=== PATIENT | male | born 1940 | race Caucasian/White ===

== ENCOUNTER 2017-09-10 20:32 | Emergency (ER) | payer MEDICARE, BC ==
--- NOTE | 2017-09-10 21:16 | EDM.PDOC ---
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 Tonight, a myles noted that Jairon seemed confused, inattentive, and suggested that he stop driving and come into the ED for an assessment. Jairon has a PMH of HBP and Type 2 DM, and did not check his BS today. He usually takes meds twice daily, but only took his am meds at noon. He denies dizziness, weakness, chest pain, SOB, headache, fatigue, polyuria or polydipsia. He denies ETOH or other substance use. - Related Data Allergies Allergy/AdvReac Type Severity Reaction Status Date / Time No Known Allergies Allergy Verified 09/10/17 21:21 Home Meds: Home Meds . [Unable to Verify Home Med List] 09/10/17 [History] Past Medical History Cardiovascular History: Reports: CAD, Hypertension, PTCA Endocrine/Metabolic History: Reports: Diabetes, Type II ED ROS GENERAL - Review of Systems Review Of Systems: See Below Constitutional: Reports: No Symptoms HEENT: Reports: No Symptoms Respiratory: Reports: No Symptoms Cardiovascular: Reports: No Symptoms Endocrine: Reports: No Symptoms GI/Abdominal: Reports: No Symptoms : Reports: No Symptoms Musculoskeletal: Reports: No Symptoms Skin: Reports: No Symptoms Neurological: Reports: Confusion Psychiatric: Reports: Confusion Hematologic/Lymphatic: Reports: No Symptoms Immunologic: Reports: No Symptoms ED EXAM, GENERAL - Physical Exam Exam: See Below Exam Limited By: No Limitations General Appearance: Alert, WD/WN, No Apparent Distress Eye Exam: Bilateral Eye: Normal Inspection, PERRL Ears: Normal External Exam Nose: Normal Inspection Throat/Mouth: Normal Inspection, Normal Oropharynx, Normal Voice Head: Normocephalic Neck: Normal Inspection, Supple, Non-Tender, Full Range of Motion Respiratory/Chest: Lungs Clear, Normal Breath Sounds Cardiovascular: Regular Rate, Rhythm, No Murmur GI/Abdominal: Normal Bowel Sounds, Soft, Non-Tender, No Organomegaly, No Mass (Male) Exam: No Hernia Rectal (Males) Exam: Deferred Back Exam: Normal Inspection Extremities: Normal Inspection Neurological: Alert, Oriented, CN II-XII Intact, Normal Cognition, Normal Gait, No Motor/Sensory Deficits Psychiatric: Normal Affect, Normal Mood Skin Exam: Warm, Dry Lymphatic: No Adenopathy Course - Vital Signs Text/Narrative:: Jairon remained stable at the [facility] ED. Screening labwork noted a nonFBS 275 mg%, and a HgbA1c 9.0%. The BUN/Cr ratio 25 was mildly elevated. 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 He has not been compliant with meds or diet. His son was called to pick him up, secure meds, and follow up with PCP tomorrow. Last Recorded V/S: Last Vital Signs Temp 35.5 C 09/10/17 21:22 Pulse 66 09/10/17 21:22 Resp 16 09/10/17 21:22 BP 149/82 H 09/10/17 21:22 Pulse Ox 95 09/10/17 21:22 - Orders/Labs/Meds Orders: Active Orders 24 hr Category Date Time Status EKG Documentation Completion [RC] ASDIRECTED Care 09/10/17 21:10 Active EKG 12 Lead [EK] Routine Ther 09/10/17 21:10 Ordered Labs: Laboratory Tests 09/10/17 09/10/17 09/10/17 Range/Units 21:18 21:18 21:22 WBC 9.0 (4.5-12.0) X10-3/uL RBC 4.55 (4.30-5.75) x10(6)uL Hgb 14.3 (11.5-15.5) g/dL Hct 41.2 (30.0-51.3) % MCV 90.6 (80-96) fL MCH 31.3 (27.7-33.6) pg MCHC 34.6 (32.2-35.4) g/dL RDW 12.5 (11.5-15.5) % Plt Count 238 (125-369) X10(3)uL MPV 8.3 (7.4-10.4) fL Neut % (Auto) 68.6 (46-82) % Lymph % (Auto) 19.6 (13-37) % [place] % (Auto) 10.0 (4-12) % Eos % (Auto) 1 (1.0-5.0) % Baso % (Auto) 1 (0-2) % Neut # (Auto) 6.1 (1.6-8.3) # Lymph # (Auto) 1.8 (0.6-5.0) # [place] # (Auto) 0.9 (0.0-1.3) # Eos # (Auto) 0.1 (0.0-0.8) # Baso # (Auto) 0.1 (0.0-0.2) # Sodium 132 L (135-145) mmol/L Potassium 3.6 (3.5-5.3) mmol/L Chloride 98 L (100-110) mmol/L Carbon Dioxide 24 (23-29) mmol/L BUN 35 H (8-23) mg/dL Creatinine 1.4 H (0.6-1.3) mg/dL Est Cr Clr Drug Dosing TNP Estimated GFR (MDRD) 49 L (>60) BUN/Creatinine Ratio 25.0 H (9-20) Glucose 275 H (80-116) mg/dL Hemoglobin A1c 9.0 H (4.0-6.0) % Calcium 9.2 (8.6-10.2) mg/dL Urine Color (YELLOW) Urine Appearance (CLEAR) Urine pH (5.0-6.5) Ur Specific [place] (1.010-1.025) Urine Protein (NEGATIVE) mg/dL Urine Glucose (UA) (NEGATIVE) mg/dL Urine Ketones (NEGATIVE) mg/dL Urine Occult Blood (NEGATIVE) Urine Nitrite (NEGATIVE) Urine Bilirubin (NEGATIVE) Urine Urobilinogen (NEGATIVE) mg/dL Ur Leukocyte Esterase (NEGATIVE) Urine RBC (0) Urine WBC (0) Ur Squamous Epith Cells (NS,R,O) Urine Bacteria (NS) 09/10/17 Range/Units 21:54 WBC (4.5-12.0) X10-3/uL RBC (4.30-5.75) x10(6)uL Hgb (11.5-15.5) g/dL Hct (30.0-51.3) % MCV (80-96) fL MCH (27.7-33.6) pg MCHC (32.2-35.4) g/dL RDW (11.5-15.5) % Plt Count (125-369) X10(3)uL MPV (7.4-10.4) fL Neut % (Auto) (46-82) % Lymph % (Auto) (13-37) % [place] % (Auto) (4-12) % Eos % (Auto) (1.0-5.0) % Baso % (Auto) (0-2) % Neut # (Auto) (1.6-8.3) # Lymph # (Auto) (0.6-5.0) # [place] # (Auto) (0.0-1.3) # Eos # (Auto) (0.0-0.8) # Baso # (Auto) (0.0-0.2) # Sodium (135-145) mmol/L Potassium (3.5-5.3) mmol/L Chloride (100-110) mmol/L Carbon Dioxide (23-29) mmol/L BUN (8-23) mg/dL Creatinine (0.6-1.3) mg/dL Est Cr Clr Drug Dosing Estimated GFR (MDRD) (>60) BUN/Creatinine Ratio (9-20) Glucose (80-116) mg/dL Hemoglobin A1c (4.0-6.0) % Calcium (8.6-10.2) mg/dL Urine Color Yellow (YELLOW) Urine Appearance Slightly cloudy (CLEAR) Urine pH 5.0 (5.0-6.5) Ur Specific [place] 1.010 (1.010-1.025) Urine Protein Negative (NEGATIVE) mg/dL Urine Glucose (UA) 250 H (NEGATIVE) mg/dL Urine Ketones Negative (NEGATIVE) mg/dL Urine Occult Blood Negative (NEGATIVE) Urine Nitrite Negative (NEGATIVE) Urine Bilirubin Negative (NEGATIVE) Urine Urobilinogen Normal (NEGATIVE) mg/dL Ur Leukocyte Esterase Moderate H (NEGATIVE) Urine RBC 0-5 (0) Urine WBC 20-30 H (0) Ur Squamous Epith Cells Occasional (NS,R,O) Urine Bacteria Few H (NS) Departure - Departure Time of Disposition: 22:37 Disposition: Home, Self-Care 01 Condition: Fair Clinical Impression: Type 2 diabetes mellitus Qualifiers: Diabetes mellitus complication status: with unspecified complications Diabetes mellitus nursing home insulin use: without nursing home use Qualified Code(s): E11.8 - Type 2 diabetes mellitus with unspecified complications - Discharge Information Referrals: Tab Karimi MD [Primary Care Provider] - Forms: ED Department Discharge - Problem List & Annotations (1) Type 2 diabetes mellitus SNOMED Code(s): 96654205 Code(s): E11.9 - TYPE 2 DIABETES MELLITUS WITHOUT COMPLICATIONS Status: Acute Current Visit: Yes Annotation/Comment:: Mr Mendosa will not drive until cleared by his PCP. He should resume meds and be checking BSs periodically as recommended. Qualifiers: Diabetes mellitus complication status: with unspecified complications Diabetes mellitus terminal block assembler insulin use: without terminal block assembler use Qualified Code( s): E11.8 - Type 2 diabetes mellitus with unspecified complications - Problem List Review Problem List Initiated/Reviewed/Updated: Yes - My Orders Last 24 Hours: My Active Orders 09/10/17 21:10 EKG Documentation Completion [RC] ASDIRECTED EKG 12 Lead [EK] Routine - Assessment/Plan Last 24 Hours: My Active Orders 09/10/17 21:10 EKG Documentation Completion [RC] ASDIRECTED EKG 12 Lead [EK] Routine Plan: Follow up with PCP. No driving in the interim.
== END 2017-09-10 23:00 | disposition home or self-care (01) ==
LOC: FB.ED 20:32
DX: E11.8 Type 2 diabetes mellitus with unspecified complications (principal)
CPT/HCPCS: 36415; 80048; 81001; 82962; 83036; 85025; 93005; 99284